=== PATIENT | male | born 1970 | race Two or more races ===

== ENCOUNTER 2019-07-22 01:45 | Inpatient (IN) | payer MEDICAID, OTHER ==
[~2019-07-22] VITALS: Ht 177.8 cm; Wt 98.9 kg
[2019-07-22] MEDS ORDERED: LORAZEPAM INJ 2 MG/ML VIAL IVP ONE (02:00)
[2019-07-22] MEDS ORDERED: IV NS 0.9% 1,000 ML BAG IV ONE (02:00)
--- NOTE | 2019-07-22 02:08 | NUR ---
PT PLACED TO BED 10. PT BIB EMS AFTER A SEIZURE EPISODE. PT HAD A WITNESSED SEIZURE BY FAMILY FRIEND THAT LIVES WITH PT. UNKNOWN HOW LONG SEIZURE WAS. PT HAS LACERATION ON TONGUE FROM BITE. AAOX3. NO SOB. BREATHING EVENLY AND UNLABORED. CONNECTED TO MONITOR. SEIZURE PRECAUTIONS INITIATED.
--- NOTE | 2019-07-22 02:10 | NUR ---
BLOOD DRAWN AND SENT TO LAB.
[2019-07-22] MEDS ORDERED: LORAZEPAM INJ 2 MG/ML VIAL ONE (02:17)
[2019-07-22 02:19] LABS: BASOPHILS # (AUTO) 0.1 /CMM (0.0-0.2); BASOPHILS % (AUTO) 0.8 % (0.0-2.0); EOSINOPHILS % (AUTO) 0.9 % (0.0-6.0); HEMATOCRIT 47 % (39-51); HEMOGLOBIN 16.1 g/dL (13.5-17.5); LYMPHOCYTES # (AUTO) 1.5 /CMM (0.8-4.8); LYMPHOCYTES % (AUTO) 17.2 % (20.0-44.0); MEAN CORPUSCULAR HGB CONC 34 g/dl (31.0-36.0); MEAN CORPUSCULAR VOLUME 97 fL (80-96); MONOCYTES % (AUTO) 11.7 % (2.0-12.0); NEUTROPHILS # (AUTO) 6.1 /CMM (1.8-8.9); NEUTROPHILS % (AUTO) 69.4 % (43.0-81.0); PLATELET COUNT (AUTO) 103 /CMM (150-450); WHITE BLOOD COUNT (AUTO) 8.8 K/uL (4.3-11.0)
[2019-07-22] MEDS ORDERED: LEVETIRACETAM (500MG) 500 MG/5 ML VIAL IV ONE ×2 (02:21→04:10)
[2019-07-22 02:25] LABS: CALCIUM, SERUM 9.7 mg/dL (8.5-10.1); CARBON DIOXIDE 22 mmol/L (21-32); CHLORIDE 99 mmol/L (98-107); CREATININE 1.4 mg/dL (0.6-1.3); GLUCOSE 164 mg/dL (74-106); POTASSIUM 3.2 mmol/L (3.5-5.1); SODIUM SERUM 142 mmol/L (136-145); UREA NITROGEN, BLOOD 18 mg/dL (7-18)
[2019-07-22 02:30] LABS: ALANINE AMINOTRANSFERASE 60 U/L (12-78); ALCOHOL, BLOOD < 3 mg/dL (0-0); ALKALINE PHOSPHATASE 258 U/L (46-116); ASPARTATE AMINOTRANSFERASE 105 U/L (15-37); BILIRUBIN,DIRECT 1.7 mg/dL (0.0-0.2); BILIRUBIN,TOTAL 3.4 mg/dL (0.2-1.0); TOTAL PROTEIN, SERUM 9.2 g/dL (6.4-8.2)
[2019-07-22] MEDS: LEVETIRACETAM (500MG) 500 MG in IV NS 0.9% 100 ML IV SCH ×2 (02:40→04:18)
[2019-07-22 02:45] LABS: ACETAMINOPHEN 0 ug/ml (10-30); SALICYLATE < 0.2 mg/dL (2.8-20.0)
--- NOTE | 2019-07-22 02:53 | NUR ---
PT SENT TO CT.
--- NOTE | 2019-07-22 03:12 | NUR ---
PATIENT RETURNED FROM CT.
--- NOTE | 2019-07-22 03:27 | NUR ---
PT RESTING COMFORTABLY W/ FAMILY FRIEND AND MOTHER AT BEDSIDE. BREATHING EVENLY AND UNLABORED. PT AWAITING CT SCAN RESULTS, FAMILY MEMBER AND FRIEND AWARE.
[2019-07-22] MEDS ORDERED: POTASSIUM CL. PREMIX PERIPHER. 50 ML IV ONE (03:50)
[2019-07-22] MEDS ORDERED: IV PREMIX D5 1/2NS + KCL 1,000 ML IV ONE ×2 (03:57→04:18)
[2019-07-22] MEDS ORDERED: Magnesium 1GM/D5W 100ML PREMIX 200 ML IV ONE (04:10)
[2019-07-22] MEDS ORDERED: POTASSIUM CL. PREMIX PERIPHER. 50 ML ONE (04:11)
--- NOTE | 2019-07-22 04:26 | NUR ---
ER MD AT BEDSIDE TALKING TO PT AND PT FAMILY MEMBER REGARDING LAB RESULTS AND CT RESULT.
[2019-07-22] MEDS ORDERED: IV NS 0.9% 500 ML BAG IV ONE (04:30)
[2019-07-22] MEDS: Magnesium 1GM/D5W 100ML PREMIX 100 ML IV SCH ×2 (04:47→05:17)
--- NOTE | 2019-07-22 04:51 | NUR ---
BLOOD REDRAWN AND SENT TO LAB.
--- NOTE | 2019-07-22 05:29 | NUR ---
PT FAMILY AND FRIEND WILL STEP OUT FOR COFFEE.
--- NOTE | 2019-07-22 05:30 | NUR ---
ELTON DELGADILLO; MOTHER, CELL # [phone]
[2019-07-22] MEDS ORDERED: hydrALAZINE HCL IV 20 MG VIAL ONE (06:05)
[2019-07-22] MEDS ORDERED: hydrALAZINE HCL IV 20 MG VIAL IV ONE (06:30)
[2019-07-22] MEDS ORDERED: LACTULOSE 10 G/15 ML UDC (PYXIS) PO ONE (06:30)
[2019-07-22] MEDS ORDERED: LACTULOSE 10 G/15 ML UDC (PYXIS) ONE (06:56)
--- NOTE | 2019-07-22 07:26 | NUR ---
report given to Rod NICOLE.
--- NOTE | 2019-07-22 08:23 | NUR ---
TELE1/RN REPORT FROM ER REPORT RECEIVED FROM ER NURSE JEANNETTE FOR PT TO BE ADMITTED FOR SEIZURE UNDER THE CARE OF DR. GUERRA. AWAITING FOR PT'S ARRIVAL.
--- NOTE | 2019-07-22 08:25 | NUR ---
report given to sweta enriquez.
[2019-07-22 08:30] VITALS: BP 153/95
--- NOTE | 2019-07-22 08:45 | NUR ---
TELE1/SWATCH PASTER TO TELE1M - ROOM 116#1 PT ARRIVED VIA GURNEY ACCOMPANIED BY ER NURSE JEANNETTE AND APPRAISER IRRIGATION TAX, TRANSFER TO HOSPITAL BED. PT A/O X 2-3, ON 2L O2 VIA N/C SATURATING @ 98%, RESPIRATIONS EVEN & UNLABORED, LUNG SOUNDS CLEAR. ON TELE WITH SINUS RHYTHM, HR 100. IV SITE PATENT WITH NO S/S OF INFECTION. ADMITTING PROTOCOLS IN PROGRESS, AWAITING FOR ORDERS, PT IS COMFORTABLE, ORIENTED TO HIS SURROUNDINGS, BED RAILS PADDED FOR SEIZURE PRECAUTION. CL WITHIN REACHED AND SAFETY MAINTAINED. ON GOING MONITORING.
--- NOTE | 2019-07-22 08:55 | NUR ---
patient transferred to room 116-1 via acls protocol, no distress noted.
[2019-07-22 12:00] VITALS: BP 151/100
[2019-07-22] MEDS ORDERED: ZOLPIDEM TARTRATE 5 MG TABLET PO PRN (12:00)
[2019-07-22] MEDS ORDERED: MAGNESIUM HYDROXIDE 30 ML UDC PO PRN (12:00)
[2019-07-22] MEDS ORDERED: ONDANSETRON HCL/PF 4 MG/2 ML VIAL IVP PRN (12:00)
[2019-07-22] MEDS ORDERED: MAG HYDROX/AL HYDROX/SIMETH 30 ML UDC PO PRN (12:00)
[2019-07-22] MEDS ORDERED: Z GUARD REMEDY 2 OZ OINT TP PRN (12:00)
[2019-07-22] MEDS: LACTULOSE 10 G/15 ML UDC (PYXIS) PO SCH ×2 (12:10→17:24)
[2019-07-22] MEDS ORDERED: IV NS 0.9% 1,000 ML IV PRN (13:30)
[2019-07-22] MEDS ORDERED: PHARMACY ADD 1 AMP MVI TO IVF DAILY ONE BAG XX PRN (13:30)
[2019-07-22] MEDS ORDERED: Thiamine 100 MG in IV D5W 50 ML IV SCH (14:00)
[2019-07-22] MEDS ORDERED: Folic acid 1 MG in IV D5W 50 ML IV SCH (15:00)
[2019-07-22] MEDS: MVI ADULT 10ML VIAL = 1AMP 10 ML in IV NS 0.9% 1,000 ML IV PRN (15:14)
[2019-07-22 16:00] VITALS: BP 147/97
--- NOTE | 2019-07-22 17:00 | NUR ---
TELE1/RN AFTERNOON ROUNDS NO CHANGE OF CONDITION. MONITORING CONTINUED.
--- NOTE | 2019-07-22 19:38 | NUR ---
TELE1/RN AM SHIFT END NOTES NO ACUTE CHANGE OF CONDITION NOTED SINCE PT WAS ADMITTED THIS MORNING. ALL NEEDS MET. PT ENDORSED TO PM NURSE TO CONTINUE CARE. CL WITHIN REACHED AND SAFETY MAINTAINED.
[2019-07-22] MEDS: HYDROCODONE/APAP 5/325MG 1 EACH TABLET PO PRN (19:46)
--- NOTE | 2019-07-22 19:47 | NUR ---
[employer] ADMINISTRATOR OPENING NOTES RECEIVED PATIENT A/OX4. PATIENT IS ON ROOM AIR WITH NO SIGNS OF SOB. PATIENT COMPLAINS OF LT ARM PAIN WILL FOLLOW UP WITH ANY ORDERED PAIN MEDS. PATIENT ON THE MONITOR SHOWS SINUS TACHY IN THE 105'S. PATIENT IS AMBULATORY WITH ASSISTANCE IF NEEDED. SKIN IS INTACT. ALL SAFETY PRECAUTIONS HAVE BEEN APPLIED AND SEIZURE PRECAUTIONS. WILL CONTINUE TO MONITOR THROUGHOUT THE NIGHT.
[2019-07-22 20:00] VITALS: BP 159/99
[2019-07-22 20:31] VITALS: BP 159/99
[2019-07-23] MEDS: LACTULOSE 10 G/15 ML UDC (PYXIS) PO SCH ×5 (00:46→23:15)
[2019-07-23] MEDS ORDERED: LEVETIRACETAM (500MG) 500 MG/5 ML VIAL IV ONE (02:15)
[2019-07-23] MEDS ORDERED: MVI-12 10ML IV ONE (02:19)
[2019-07-23] MEDS: LEVETIRACETAM (500MG) 500 MG in IV NS 0.9% 100 ML IV SCH (02:25)
[2019-07-23] MEDS: MVI ADULT 10ML VIAL = 1AMP 10 ML in IV NS 0.9% 1,000 ML IV PRN ×2 (03:28→23:45)
[2019-07-23] MEDS: ACETAMINOPHEN 325 MG TABLET PO PRN (04:06)
[2019-07-23 04:52] VITALS: BP 156/108
[2019-07-23 06:00] VITALS: BP 156/108
--- NOTE | 2019-07-23 07:00 | NUR ---
MS RN NOTES OPENING RECIEVE PATIENT FORM PM SHIFT. PATIENT IS A/O X4 , PATIENT IS RESTING COMFORABLELY ON THE BED. PATIENT IS AMBULATORY. PATIENT SKIN IS IN TACT. PATIENT HAS LFA 20# AND RAC 18 BOTH LINES PATENT AND INTACT. NO SIGNS OF INFILTRATION OF S/S OF INFECTION. BED LOCK AND LOWEST POSITION, CALL LIGHT WITH IN REACH. SEIZURE PRECAUTION IMPLEMENTED.
[2019-07-23 07:14] LABS: BASOPHILS # (AUTO) 0.1 /CMM (0.0-0.2); EOSINOPHILS % (AUTO) 3.2 % (0.0-6.0); HEMATOCRIT 39 % (39-51); HEMOGLOBIN 13.2 g/dL (13.5-17.5); MEAN CORPUSCULAR HGB CONC 34 g/dl (31.0-36.0); MEAN CORPUSCULAR VOLUME 97 fL (80-96); MONOCYTES # (AUTO) 0.9 /CMM (0.1-1.30); MONOCYTES % (AUTO) 14.2 % (2.0-12.0); NEUTROPHILS % (AUTO) 65.6 % (43.0-81.0); PLATELET COUNT (AUTO) 78 /CMM (150-450); RED BLOOD CELL COUNT(AUTO) 4.01 MIL/uL (4.5-6.0)
[2019-07-23 07:37] LABS: CALCIUM, SERUM 8.2 mg/dL (8.5-10.1); CREATININE 0.8 mg/dL (0.6-1.3); MAGNESIUM 1.8 mg/dL (1.8-2.4); PHOSPHORUS 3.5 mg/dL (2.5-4.9); POTASSIUM 3.2 mmol/L (3.5-5.1)
[2019-07-23 08:00] VITALS: BP 148/92
--- NOTE | 2019-07-23 08:03 | NUR ---
MS RN NOTE PATIENT IN BED NO SIGN OF ANY DISTRESS. PATIENT IS A/OX4 DOES NOT COMPLAIN OF ANY PAIN OR UN-COMFORT. ON ROOM AIR NO SIGN OF SOB. PATIENT IS AMBULATORY WITH ASSISTANCE IF NEEDED. IV ON RT FOREARM WITH MVI RUNNING AT 100CC/HR. ALL SAFETY PRECAUTIONS APPLIED. SEIZURE PRECAUTIONS APPLIED. ENDORSED PATIENT TO MORNING SHIFT NURSE
[2019-07-23 08:50] LABS: BAND % (MANUAL) 2 % (0.0-5.0); EOSINOPHILS % (MANUAL) 3 % (0-4); LYMPHOCYTES % (MANUAL) 15 % (16-48); MONOCYTES % (MANUAL) 9 % (0-11.0); NEUTROPHILS % (MANUAL) 71 (42-76)
[2019-07-23] MEDS: CYANOCOBALAMIN 500 MCG TABLET PO SCH (09:07)
[2019-07-23] MEDS: POTASSIUM CHLORIDE 20 MEQ TAB.PRT.SR PO SCH ×2 (11:16→12:20)
[2019-07-23 12:00] VITALS: BP 145/60
[2019-07-23] MEDS: LEVETIRACETAM (250 MG) 250 MG TABLET PO SCH ×2 (12:20→21:28)
[2019-07-23] MEDS: THIAMINE HCL 100 MG TABLET PO SCH (14:11)
[2019-07-23] MEDS: FOLIC ACID 1 MG TABLET PO SCH (14:11)
[2019-07-23 16:00] VITALS: BP 145/60
--- NOTE | 2019-07-23 19:10 | NUR ---
RN OPENING NOTES: BEDSIDE REPORT RECEIVED FROM AM SHIFT NURSE. PATIENT AWAKE AND VERBALLY RESPONSIVE. NO RESPIRATORY DISTRESS. NO PAIN. NO SEIZURES NOTED AT THIS TIME. SAFETY PRECAUTIONS IMPLEMENTED. BED LOCKED AND IN LOWEST POSITION. ALL NEEDS ATTENDED. CALL LIGHT PLACED WITHIN REACH. WILL CONT. TO MONITOR. Addendum: 07/23/19 at 2340 by ADRIANNA ALBERTO RN 1909: IV ACCESS ON (L) LA #20 AND (R) AC #18 BOTH INFILTRATED. SKIN IS RED AND PAINFUL TO TOUCH. WILL REMOVE IV SITES. Addendum: 07/23/19 at 2341 by ADRIANNA ALBERTO RN 1929: REMOVED IV SITES, TOLERATED PROCEDURE WELL. INSERTED A NEW IV ACCESS ON (L) WRIST #22. INTACT, PATENT, AND FLUSHING WELL.
--- NOTE | 2019-07-23 19:13 | NUR ---
MS RN CLOSING NOTES PATIENT IN BED NO SIGNS OF ANY DISTRESS. PATIENT A/O X4 . PATIENT IS ON ROOM AIR NO SIGNS OF ACUTE DISTRESS, NO SOB. PATIENT IS AMBULATORY .ALL SAFETY PRECAUTIONS APPLIED PER HOSPITAL PROTOCOL.
[2019-07-23 20:00] VITALS: BP 142/90
[2019-07-23] MEDS: HYDROCODONE/APAP 5/325MG 1 EACH TABLET PO PRN (23:15)
[2019-07-24 04:00] VITALS: BP 146/92
[2019-07-24] MEDS: LACTULOSE 10 G/15 ML UDC (PYXIS) PO SCH ×4 (05:23→23:37)
--- NOTE | 2019-07-24 07:00 | NUR ---
MS RN NOTES PATIENT IS A/O X4 PATIENT PATIENT IS AWAKE AND SITTING COMFORTABLE ON THE BED. PATIENT IS AMBULATORY . PATIENT IS ON ROOM AIR WITH NO SIGNS OF RESPIRATORY DISTRESS, SOB . PATIENT BREATHING IS EVEN AND UNLABORED . PATIENT HAS A LEFT WRIT # 22, NO SIGNS OF INTACT AND PATIENT. ALL SAFETY PRECAUTIONS APPLIED PER HOSPITAL PROTOCOL. BED LOCKED LOWEST POSTION , CALL LIGHT WITH IN REACH.
[2019-07-24 07:11] LABS: BASOPHILS % (AUTO) 0.5 % (0.0-2.0); EOSINOPHILS % (AUTO) 3.1 % (0.0-6.0); HEMATOCRIT 39 % (39-51); HEMOGLOBIN 13.4 g/dL (13.5-17.5); LYMPHOCYTES # (AUTO) 0.8 /CMM (0.8-4.8); LYMPHOCYTES % (AUTO) 11.3 % (20.0-44.0); MEAN CORPUSCULAR HGB CONC 34 g/dl (31.0-36.0); MEAN CORPUSCULAR VOLUME 96 fL (80-96); MONOCYTES # (AUTO) 0.8 /CMM (0.1-1.30); MONOCYTES % (AUTO) 11.7 % (2.0-12.0); NEUTROPHILS # (AUTO) 5.1 /CMM (1.8-8.9); NEUTROPHILS % (AUTO) 73.4 % (43.0-81.0); PLATELET COUNT (AUTO) 85 /CMM (150-450); RED BLOOD CELL COUNT(AUTO) 4.08 MIL/uL (4.5-6.0)
[2019-07-24 07:21] LABS: CALCIUM, SERUM 8.5 mg/dL (8.5-10.1); CREATININE 0.8 mg/dL (0.6-1.3)
[2019-07-24 08:00] VITALS: BP_SYST 110
[2019-07-24 08:37] LABS: EOSINOPHILS % (MANUAL) 3 % (0-4); LYMPHOCYTES % (MANUAL) 9 % (16-48); MONOCYTES % (MANUAL) 10 % (0-11.0); NEUTROPHILS % (MANUAL) 78 (42-76)
[2019-07-24] MEDS: FOLIC ACID 1 MG TABLET PO SCH (09:24)
[2019-07-24] MEDS: LEVETIRACETAM (250 MG) 250 MG TABLET PO SCH ×2 (09:25→20:48)
[2019-07-24] MEDS: CYANOCOBALAMIN 500 MCG TABLET PO SCH (09:25)
[2019-07-24] MEDS: THIAMINE HCL 100 MG TABLET PO SCH (09:25)
[2019-07-24] MEDS: MULTIVITAMINS,THERAGRAN 1 UDTAB TABLET PO SCH (12:39)
[2019-07-24] MEDS: POTASSIUM CHLORIDE 20 MEQ TAB.PRT.SR PO SCH ×3 (12:39→14:47)
[2019-07-24] MEDS ORDERED: IV NS 0.9% 1,000 ML IV PRN (14:00)
[2019-07-24 16:00] VITALS: BP 160/110
[2019-07-24 18:00] VITALS: BP 160/110
[2019-07-24] MEDS: ACETAMINOPHEN 325 MG TABLET PO PRN (18:16)
--- NOTE | 2019-07-24 19:30 | NUR ---
MS RN CLOSING NOTES PATIENT IN BED RESTING PATIENT IS AWAKE AND ORIENTED. PATIENT A/O X4 PATIENT SHOWS NO SIGNS OF ACUTE RESPIRATORY DISTRESS. PATIENT IS ON ROOM AIR. NO SOB. PATIENT IS AMBULATORY. PATIENT HAS RAC 24 INTACT AND PATENT WILL ENDORSE TO ON COMING SHIFT. BED LOCKED AND LOWEST POSITION. CALL LIGHT WITH IN REACH.
--- NOTE | 2019-07-24 19:37 | NUR ---
patient recieved with no iv access.wit family at bedside.
[2019-07-24 20:00] VITALS: BP 176/98
--- NOTE | 2019-07-24 20:39 | NUR ---
iv cannula inserted aseptically gauge 22 to the right hand and ivf banana bag resumed. with call light within reach
--- NOTE | 2019-07-24 21:54 | NUR ---
patient,s bp 175/115.last alcohol intake is last . message left with the exchange .awaitinmg response.
[2019-07-24 21:56] VITALS: BP 175/115
--- NOTE | 2019-07-24 22:10 | NUR ---
DR PETE RAMÍREZ WITH ORDERS FOR LORAZEPAMIV X1 ,TO TREAT THE ALCOHOL WITHDRAWAL AND NO TRETEMTN FOR TYHE ELEVATED BP. WILL CONTINUE TO MONITOR, Addendum: 07/24/19 at 2220 by MARNIE DA SILVA RN WOUND CARE ORDERED FOR THE BILATERAL ARMS REDDENED AREAS AEVALUATION AND TREATMENT, ORDONEZ COMPRESS ORDERED,
[2019-07-24] MEDS: LORAZEPAM INJ 2 MG/ML VIAL IV PRN (22:33)
--- NOTE | 2019-07-24 23:16 | NUR ---
ETHICAL HACKER OF CARE 2316 RECEIVED PATIENT FROM COREY DYE, AT 2316. PATIENT IS CURRENTLY ASLEEP, EASILY AROUSABLE TO NAME. NO RESPIRATORY DISTRESS. NO COMPLAINTS OF PAIN/DISCOMFORT AT THIS TIME. NO SEIZURES NOTED AT THIS TIME. SAFETY PRECAUTIONS IMPLEMENTED; CALL LIGHT WITHIN REACH, BED LOCKED, BED LOWEST POSITION, BILATERAL UPPER SIDERAILS UP. WILL CONTINUE TO MONITOR.
[2019-07-25 04:00] VITALS: BP 177/120
--- NOTE | 2019-07-25 04:21 | NUR ---
RN NOTES 0421 INFORMED CYLINDER FILLER, PETE RAMÍREZ OF HIGH BP. SHE ORDERED 0.1 MG PO TID PRN KEEP SBP <160.
[2019-07-25] MEDS ORDERED: CLONIDINE HCL 0.1 MG TABLET PO PRN ×2 (04:30)
[2019-07-25 05:50] VITALS: BP 148/88
[2019-07-25] MEDS: LORAZEPAM INJ 2 MG/ML VIAL IV PRN (05:51)
--- NOTE | 2019-07-25 06:15 | NUR ---
RN NOTES LACTULOSE DOSE FOR 0600 OUT OF STOCK IN BOTH [facility]. CALLED PHARMACY BUT NO ANSWER. WAITING FOR PHARMACY TO RESTOCK THE MEDICATION.
--- NOTE | 2019-07-25 06:55 | NUR ---
RN CLOSING NOTES PATIENT RESTING IN BED, EASILY AROUSABLE TO NAME. PATIENT A/O X 4. NO SIGNS OF RESPIRATORY DISTRESS, NO SHORTNESS OF BREATH NOTED. TOLERATING ROOM AIR. PATIENT DID NOT COMPLAIN OF PAIN/DISCOMFORT THROUGHOUT THE SHIFT. STILL NO LACTULOSE IN STOCK IN [facility], UNABLE TO GIVE 0600 DOSE AT THIS TIME. SAFETY PRECAUTIONS IMPLEMENTED; CALL LIGHT WITHIN REACH, BED LOCKED, BED LOWEST POSITION, BILATERAL UPPER SIDERAILS UP. WILL CONTINUE TO MONITOR AND THEN WILL ENDORSE TO DAY SHIFT NURSE FOR CONTINUITY OF CARE.
--- NOTE | 2019-07-25 07:17 | NUR ---
RN NOTES REPORT GIVEN TO COREY CARRION.
[2019-07-25 07:24] LABS: BASOPHILS % (AUTO) 0.6 % (0.0-2.0); EOSINOPHILS % (AUTO) 2.6 % (0.0-6.0); HEMATOCRIT 38 % (39-51); LYMPHOCYTES % (AUTO) 14.3 % (20.0-44.0); MEAN CORPUSCULAR HGB CONC 34 g/dl (31.0-36.0); MEAN CORPUSCULAR VOLUME 97 fL (80-96); MONOCYTES # (AUTO) 0.9 /CMM (0.1-1.30); MONOCYTES % (AUTO) 13.4 % (2.0-12.0); NEUTROPHILS # (AUTO) 4.6 /CMM (1.8-8.9); NEUTROPHILS % (AUTO) 69.1 % (43.0-81.0); PLATELET COUNT (AUTO) 82 /CMM (150-450); RED BLOOD CELL COUNT(AUTO) 3.91 MIL/uL (4.5-6.0); WHITE BLOOD COUNT (AUTO) 6.7 K/uL (4.3-11.0)
[2019-07-25 07:36] LABS: CALCIUM, SERUM 8.5 mg/dL (8.5-10.1); CREATININE 0.7 mg/dL (0.6-1.3); POTASSIUM 3.5 mmol/L (3.5-5.1)
[2019-07-25 08:00] VITALS: BP 133/94
--- NOTE | 2019-07-25 08:08 | NUR ---
WOUND CARE CONSULT: PT PRESENTS WITH REDNESS TO BILATERAL ARMS. DEFER TO MD FOR REDNESS. NO DRAINAGE NOTED. PT DENIES INSECT BITES TO ARMS. WILL SEE PRN. CURRENT SERA SCORE IS 20.
[2019-07-25] MEDS: MULTIVITAMINS,THERAGRAN 1 UDTAB TABLET PO SCH (08:41)
[2019-07-25] MEDS: FOLIC ACID 1 MG TABLET PO SCH (08:41)
[2019-07-25] MEDS: CYANOCOBALAMIN 500 MCG TABLET PO SCH (08:41)
[2019-07-25] MEDS: THIAMINE HCL 100 MG TABLET PO SCH (08:42)
[2019-07-25] MEDS: LEVETIRACETAM (250 MG) 250 MG TABLET PO SCH (08:42)
[2019-07-25] MEDS ORDERED: LEVE250T2 PO (11:58)
[2019-07-25 13:55] VITALS: BP 145/80
--- NOTE | 2019-07-25 13:56 | NUR ---
both forearms with noticeable swelling, and red, denied discomfort. Per patient's report, swelling came from hep lock insertion. Warm compress applied, wound care consulted. by the time of discharge, stated " no insurance, needs assistance with [facility]", case hardener got involved, patient a coupon for the medications he needs. HL out, accompanied by staff, discharged to home, alert, oriented, and appropriate.
== END 2019-07-25 13:55 | disposition home or self-care (01) | DRG 775 ==
LOC: ER 01:46 → MED 06:26 → UNDOADMIN 06:26 → TELE1 08:07 → MEDSG1 22:11
PROVIDERS: ADMIT Family Medicine; ATTEND Family Medicine
DX: F10.239 Alcohol dependence with withdrawal, unspecified (principal); N17.0 Acute kidney failure with tubular necrosis; K72.00 Acute and subacute hepatic failure without coma; G92 Toxic encephalopathy; R16.1 Splenomegaly, not elsewhere classified; K70.0 Alcoholic fatty liver; E80.6 Other disorders of bilirubin metabolism; E87.6 Hypokalemia; E86.9 Volume depletion, unspecified; Y90.0 Blood alcohol level of less than 20 mg/100 ml; R73.9 Hyperglycemia, unspecified; R56.9 Unspecified convulsions
CPT/HCPCS: 36415; 70450-TC; 71045-TC; 76700-TC; 80048-TC; 80061-TC; 80076-TC; 80305; 82140-TC; 82962-TC; 83735-TC; 84100-TC; 85025-TC; 87081-TC; G0378; G0480; J0360; J1953; J2060; J3411; J3475; J3480; J3490; J7030; J7040; J7050; J7060